=== PATIENT | male | born 1975 | race Caucasian/White ===

== ENCOUNTER 2025-04-16 12:21 | Emergency (ER) | payer BC, SELFPAY ==
--- OUTSIDE RECORDS SUMMARY | 2025-04-16 12:23 | XMS_ITS | Clinical Summary ---
Author Organization [employer] [facility] [employer] Address [address] [place] [id number] Care Team Providers Care Wire Frame Maker Name Role Phone Cr Quintero MD Primary Care Provider [phone] Allergies Active Allergy Reactions Criticality Noted Date Comments Penicillins 10/24/2009 Medications No known medications Active Problems Problem Noted Date Diagnosed Date Melanocytic nevus of trunk 12/21/2016 Overview (12/21/2016): 3 mm mole left mid back dark brown and flat. Immunizations Immunization Administration Dates Next Due AMB Influenza, IIV3 (Age >=3 years)(Flu Clinic O nly) 07/19/2009 AMB Influenza, IIV4 PF (=>6 mos Flulaval,Fluzone Fluarix)(Flu Clinic Only) 07/12/2020 Influenza A (H1N1), Inactivated (Age >=3 Years) 09/23/2009 Tdap 04/18/2019 Family History Medical History Relation Name Comments Diabetes Maternal Grandmother Cancer-colon No Family History Cancer-prostate No Family History Heart attack No Family History Relation Name Status Comments Maternal Grandmother Social History Tobacco Use Types Packs/Day Years Used Date Smoking Tobacco: Never Smokeless Tobacco: Never Tobacco Cessation:Counseling Given: Yes Alcohol Use Standard Drinks/Week Comments Yes 0 (1 standard drink = 0.6 oz pur e alcohol) Ocas. PHQ-2 Answer Date Recorded PHQ-2 Score 0 04/18/2019 Social Connections Answer Date Recorded Frequency of Communication with Friends and Fami ly Not on file 10/04/2021 Financial Resource Strain Answer Date R ecorded Difficulty of Paying Living Expenses Not on file 10/04/2021 Difficulty of Paying Living Expenses Not on file 10/04/2021 Sex and Gender Information Value Date Recorded Sex Assigned at Not on file Legal Sex Male 5:24 AM DISPLAY FABRICATION SUPERVISOR Gender Identity Not on file Sexual Orientation Not on file Obstetrics History Last Filed Vital Signs Vital Sign Reading Time Taken Comments Blood Pressure 127/86 10/23/2019 10:25 AM DISPLAY FABRICATION SUPERVISOR Pulse 47 10/23/2019 10:25 AM DISPLAY FABRICATION SUPERVISOR Temperature 36.7 C (98 F) 10/23/2019 10:25 AM DISPLAY FABRICATION SUPERVISOR Respiratory Rate - - Oxygen Saturation 98% 10/23/2019 10:25 AM DISPLAY FABRICATION SUPERVISOR Inhaled Oxygen Concentration - - Weight 82.3 kg (181 lb 8 oz) 10/23/2019 10:25 AM DISPLAY FABRICATION SUPERVISOR Height 184.2 cm (6' 0.5) 10/23/2019 10:25 AM CS T Body Mass Index 24.28 10/23/2019 10:25 AM DISPLAY FABRICATION SUPERVISOR Plan of Treatment Upcoming Encounters Date Type Department Care Team (Late st Contact Info) Description 04/17/2025 12:45 PM CDT Office Visit [facility] [address] [place] [address] Charlotte Taylor PA [address] [place] [address] Health Maintenance Due Date Last Done Comments HIV for age 15-65 12/10/1990 Hepatitis C screening for age 18-79 12/10/1993 Hepatitis B series for 19+ (1 of 3 - 19+ 3-dose series) 12/10/1994 Depression screening for age 12+ 04/18/2020 04/18/2019, 12/21/2016 BMI (ht and wt on same day) for age 18+ 10/23/2020 10/23/2019, 04/18/2019, 02/08/2017, Additional history exists Colonoscopy through age 75 12/10/2020 Lipids for age 45-75 04/18/2024 04/18/2019, 12/22/19 17 COVID-19 vaccine series (2023- season) 2024 Influenza Vaccine (#1) 2025 07/12/2020, 2008 Tetanus booster 04/18/2029 04/18/2019 Pneumococcal series for age 6-49 Aged Out No longer eligible based on patient's age to complete this topic Procedures Procedure Name Priority Date/Time Associated Diagnosis Comments LIPID PANEL W REFLEX MEASURED LDL Routine 04/18/2019 9:16 AM CDT Lipid screening from Last 3 Months or Most Recently Relevant to Health Maintenance Results * (ABNORMAL) LIPID PANEL W REFLEX MEASURED LDL (04/18/2019 9:16 AM CDT) CHOLESTEROL,TOTAL 140 100 - 199 mg/dL 04/18/2019 2:02 PM CDT [facility] TRIGLYCERIDES 107 <150 mg/dL 04/18/2019 2:02 PM CDT [facility] HDL CHOLESTEROL 33(L) >40 mg/dL 9 2:02 PM CDT [facility] NON-HDL CHOLESTEROL 107 <145 mg/dl 04/18/2019 2:02 PM CDT [facility] CHOL/HDL RATIO 4.24 <4.50 04/18/2019 2:02 PM CDT [facility] LDL CHOLESTEROL 86 <=130 mg/dL 04/18/2019 2:02 PM CDT [facility] PROVIDER ORDERED STATUS RANDOM 04/18/2019 2:02 PM CDT [facility] Blood BLOOD SPECIMEN / Unknown Venipuncture / Unknown 04/18/2019 9:16 AM CDT 04/18/2019 9:16 AM CDT us Jamarcus Eisenberg MD CHEMISTRY Final Result [facility] [address] [place] [address], [place] from Last 3 Months or Most Recently Relevant to Health Maintenance Care Teams Wire Frame Maker Relationship Specialty Start Date End Date Cr Quintero MD [address] [place] [address] PCP - General 10/9/07
[2025-04-16 12:28] VITALS: BP 166/95; PULSE 52; RESP 20; TEMP 36.9; O2SAT 98; BMI 25.6
--- NOTE | 2025-04-16 12:33 | ED.LOWEXIN ---
HPI - Extremity Injury (Lower) General Time Seen by Provider: 12:33 Date Seen: 04/16/25 Chief Complaint: Extremity Pain/Injury, Lower Stated Complaint: R knee injury Time Seen by Provider: 04/16/25 12:31 Source: patient and RN notes reviewed Mode of arrival: ambulatory Limitations: no limitations Related Data Home Medications ?Medication ?Instructions ?Recorded ?Confirmed No Known Home Medications 04/16/25 04/16/25 Allergies Allergy/AdvReac Type Severity Reaction Status Date / Time Penicillins Allergy Intermediate Unknown Verified 04/16/25 12:31 Exam Const: Vital Signs, click to edit/add: Vital Signs - 24 hr 04/16/25 12:28 Temperature 98.5 F Pulse Rate [Pulse Oximeter] 52 L Respiratory Rate 20 Blood Pressure [Ri ght Upper Arm] 166/95 H Pulse Oximetry 98 Oxygen Delivery Me thod Room Air Course Vital Signs Vital signs: Initial Vital Signs Temperature 98.5 F 04/16/25 12:28 Temperature Source Temporal Artery Scan 04/16/25 12:28 Pulse Rate 52 L 04/16/25 12:28 Respiratory Rate 20 04/16/25 12:28 Blood Pressure 166/95 H 04/16/25 12:28 Blood Pressure Mean 118 H 04/16/25 12:28 Pulse Oximetry 98 04/16/25 12:28 Oxygen Delivery Method Room Air 04/16/25 12:28 Vital Signs Temperature 98.5 F 04/16/25 12:28 Pulse Rate 52 L 04/16/25 12:28 Respiratory Rate 20 04/16/25 12:28 Blood Pressure 166/95 H 04/16/25 12:28 Pulse Oximetry 98 04/16/25 12:28 Oxygen Delivery Method Room Air 04/16/25 12:28 Temperature 98.5 F 04/16/25 12:28 Pulse Rate 52 L 04/16/25 12:28 Respiratory Rate 20 04/16/25 12:28 Blood Pressure 166/95 H 04/16/25 12:28 Pulse Oximetry 98 04/16/25 12:28 Oxygen Delivery Method Room Air 04/16/25 12:28 Discharge Plan Discharge Prescriptions: No Action No Known Home Medications Follow Up/Referrals: Cr Quintero MD [Primary Care Provider, Family Practice]
--- NOTE | 2025-04-16 12:49 | ED_ITS ---
HPI - Extremity Injury (Lower) General Date Seen: 04/16/25 <Abdulkadir Hoffman - Last Filed: 04/16/25 12:54> Chief Complaint: Extremity Pain/Injury, Lower <Abdulkadir Hoffman - Last Filed: 04/16/25 12:54> Stated Complaint: R knee injury <Abdulkadir Hoffman DO - Last Filed: 04/16/25 12:54> Time Seen by Provider: 04/16/25 12:31 <Abdulkadir Hoffman DO - Last Filed: 04/16/25 12:54> Source: patient <Abdulkadir Hoffman - Last Filed: 04/16/25 12:54> Mode of arrival: ambulatory <Abdulkadir Hoffman - Last Filed: 04/16/25 12:54> Limitations: no limitations <Abdulkadir Hoffman DO - Last Filed: 04/16/25 12:54> History of Present Illness HPI Narrative: Patient is a 49-year-old male presenting for right knee pain. He was playing baseball yesterday when he turned to run up the 1st baseline and felt a pop in his right knee. Since then he is having pain in this knee expect she with turning. Is able to ambulate but does get more pain when walking up steps. Has been taking ibuprofen for pain. He called the [facility] office and was told to come to the emergency department for imaging. Denies any other injuries to this knee in states he just started twisting his knee. Denies any numbness to that leg. No other concerns noted <Abdulkadir Hoffman - Last Filed: 04/16/25 12:54> Related Data Home Medications: Home Medications ?Medication ?Instructions ?Recorded ?Confirmed No Known Home Medications 04/16/2504/03 <Abdulkadir Hoffman DO - Last Filed: 04/16/25 12:54> Allergies/Adverse Reactions: Allergies Allergy/AdvReac Type Severity Reaction Status Date / Time Penicillins Allergy Intermediate Unknown Verified 04/16/25 13:30 <Abdulkadir Hoffman DO - Last Filed: 04/16/25 12:54> Review of Systems Narrative: Pertinent systems reviewed and were negative unless stated in HPI <Abdulkadir Hoffman - Last Filed: 04/16/25 12:54> [facility] Medical History: Medical History (Updated 04/16/25 @ 13:03 by Ines Medellin ~ MEDICAL CERTIFICATION SPECIALIST, MEDICAL CERTIFICATION SPECIALIST) Dyslipidemia ?E78.5 - Hyperlipidemia, unspecified (ICD-10) Melanocytic nevus of trunk ?D22.5 - Melanocytic nevi of trunk (ICD-10) <Abdulkadir Hoffman DO - Last Filed: 04/16/25 12:54> Exam Narrative: Exam Narrative: Const: Well-nourished, Well-developed, in mild distress Eyes: PERRL, no conjunctival injection, and symmetrical lids HENT: Atraumatic external nose and ears. Moist mucous membranes. CVS: Dorsalis pedis pulses 2+ and equal in all extremities MSK:Extremities w/o deformity, no locking noted of the right knee. Normal anterior and posterior draw test. Minimal pain with Margarita test. Pain noted with Thessaly. Skin: Warm, Dry. No rashes or lesions. Neuro: Normal Muscle tone, No focal neurological deficits. Psych: Awake, Alert, & Oriented x3. Appropriate mood and affect. <Abdulkadir Hoffman DO - Last Filed: 04/16/25 12:54> Const: Vital Signs, click to edit/add: Vital Signs - 24 hr 04/16/25 12:28 Temperature 98.5 F Pulse Rate [Pulse Oximeter] 52 L Respiratory Rate 20 Blood Pressure [Ri ght Upper Arm] 166/95 H Pulse Oximetry 98 Oxygen Delivery Me thod Room Air <Abdulkadir Hoffman DO - Last Filed: 04/16/25 12:54> Vital Signs, click to edit/add: Vital Signs - 24 hr 04/16/25 12:28 Temperature 98.5 F Pulse Rate [Pulse Oximeter] 52 L Respiratory Rate 20 Blood Pressure [Ri ght Upper Arm] 166/95 H Pulse Oximetry 98 Oxygen Delivery Me thod Room Air <Cecily Rachel MD - Last Filed: 04/16/25 15:57> Course Vital Signs Vital signs: Initial Vital Signs Temperature 98.5 F 04/16/25 12:28 Temperature Source Temporal Artery Scan 04/16/25 12:28 Pulse Rate 52 L 04/16/25 12:28 Respiratory Rate 20 04/16/25 12:28 Blood Pressure 166/95 H 04/16/25 12:28 Blood Pressure Mean 118 H 04/16/25 12:28 Pulse Oximetry 98 04/16/25 12:28 Oxygen Delivery Method Room Air 04/16/25 12:28 Vital Signs Temperature 98.5 F 04/16/25 12:28 Pulse Rate 52 L 04/16/25 12:28 Respiratory Rate 20 04/16/25 12:28 Blood Pressure 166/95 H 04/16/25 12:28 Pulse Oximetry 98 04/16/25 12:28 Oxygen Delivery Method Room Air 04/16/25 12:28 Temperature 98.5 F 04/16/25 12:28 Pulse Rate 52 L 04/16/25 12:28 Respiratory Rate 20 04/16/25 12:28 Blood Pressure 166/95 H 04/16/25 12:28 Pulse Oximetry 98 04/16/25 12:28 Oxygen Delivery Method Room Air 04/16/25 12:28 <Abdulkadir Hoffman DO - Last Filed: 04/16/25 12:54> Initial Vital Signs Temperature 98.5 F 04/16/25 12:28 Temperature Source Temporal Artery Scan 04/16/25 12:28 Pulse Rate 52 L 04/16/25 12:28 Respiratory Rate 04/16/25 12:28 Blood Pressure 166/95 H 04/16/25 12:28 Blood Pressure Mean 118 H 04/16/25 12:28 Pulse Oximetry 98 04/16/25 12:28 Oxygen Delivery Method Room Air 04/16/25 12:28 Vital Signs Temperature 98.5 F 04/16/25 12:28 Pulse Rate 52 L 04/16/25 12:28 Respiratory Rate 20 04/16/25 12:28 Blood Pressure 166/95 H 04/16/25 12:28 Pulse Oximetry 98 04/16/25 12:28 Oxygen Delivery Method Room Air 04/16/25 12:28 Temperature 98.5 F 04/16/25 12:28 Pulse Rate 52 L 04/16/25 12:28 Respiratory Rate 20 04/16/25 12:28 Blood Pressure 166/95 H 04/16/25 12:28 Pulse Oximetry 98 04/16/25 12:28 Oxygen Delivery Method Room Air 04/16/25 12:28 <Cecily Rachel MD - Last Filed: 04/16/25 15:57> MDM - Extremity Injury (Lower) MDM Narrative Medical decision making narrative: Patient presents to the emergency department for right knee pain. Pain could be related to a meniscus tear. No signs of ACL or PCL injuries. He was told to come to the emergency department by the orthopedic clinic for imaging. The patient's even showed me her recent calls of her calling the orthopedic clinic. I am not sure why he would require imaging in the emergency department. We would not do any emergent MRI at this time for this pain and x-rays seem very unlikely to be beneficial as there was no trauma and pain just occurred from him turning his knee. I did offer x-rays but family declined them if I do not believe they will be helpful. We called the orthopedic clinic to find out why he was sent here and they are not sure. Reschedule the patient for him today. He will be discharged. <Abdulkadir Hoffman DO - Last Filed: 04/16/25 12:54> Patient presents to the emergency department for right knee pain. Pain could be related to a meniscus tear. No signs of ACL or PCL injuries. He was told to come to the emergency department by the orthopedic clinic for imaging. The patient's even showed me her recent calls of her calling the orthopedic clinic. I am not sure why he would require imaging in the emergency department. We would not do any emergent MRI at this time for this pain and x-rays seem very unlikely to be beneficial as there was no trauma and pain just occurred from him turning his knee. I did offer x-rays but family declined them if I do not believe they will be helpful. We called the orthopedic clinic to find out why he was sent here and they are not sure. Reschedule the patient for him today. He will be discharged. Request no charge for today's visit. <Cecily Rachel MD - Last Filed: 04/16/25 15:57> Discharge Plan Discharge Clinical Impression: Acute knee pain Qualifiers: Laterality: right Qualified Code(s): M25.561 - Pain in right knee <Abdulkadir Hoffman DO - Last Filed: 04/16/25 12:54> Patient Disposition: Home, Self-Care <Abdulkadir Hoffman DO - Last Filed: 04/16/25 12:54> Condition: Stable <Abdulkadir Hoffman DO - Last Filed: 04/16/25 12:54> Instructions: Knee Pain (ED) <Abdulkadir Hoffman DO - Last Filed: 04/16/25 12:54> Additional Instructions: You have an appointment with Orthopedics at 13:30 today. Address is [address] [place] [address]. <Abdulkadir Hoffman DO - Last Filed: 04/16/25 12:54> Prescriptions: No Action No Known Home Medications <Abdulkadir Hoffman DO - Last Filed: 04/16/25 12:54> Follow Up/Referrals: Cr Quintero MD [Primary Care Provider, Family Practice] <Abdulkadir Hoffman DO - Last Filed: 04/16/25 12:54> Stand Alone Forms: My[facility] Info Instructions <DO Unique Mcqueen Last Filed: 04/16/25 12:54>
== END 2025-04-16 13:01 | disposition home or self-care (01) ==
LOC: ED 13:00
PROVIDERS: Emergency Provider Student in an Organized Health Care Education/Training Program; PCP Family Medicine
DX: M25.561 Pain in right knee (principal)
CPT/HCPCS: 99281

== ENCOUNTER 2025-05-11 07:06 | Outpatient (CLI) | payer BC, SELFPAY ==
--- NOTE | 2025-05-11 07:15 | MR_ITS ---
[address] [address] Phone:?[phone] Fax:?[phone] Referring Physician Information: Angie Benitez [address] [facility] [address] Phone:?[phone] Fax:?[phone] Patient:Juli Marquez D.O.B:?1975 Sex:?Male Phone:?[phone] [facility] MRN:?[id number] Exam Date:?05/11/2025 EXAM: MRI of the RIGHT KNEE, without contrast CLINICAL: Male, 49 years old, with medial right knee pain. INDICATION: Evaluate for medial meniscus tear and MCL injury versus other knee internal derangement etiology. PRIOR SURGERY: None reported. PLAIN FILMS: 04/16/2025 radiographic series of the right knee. COMPARISONS: No prior MRIs available. TECHNICAL: Using a 1.5 Carley MR scanner and a localizing surface coil: 3.0 mm?sagittals: PD, PDFS 3.0 mm?coronals: PD, STIR 3.0 mm?axials: PD, T2FS SEDATION: None. CONTRAST: None. IMPRESSION: 1. Focal vertical oblique radial tear of the far posterior medial meniscus without complete disruption although with mild 2 mm of peripheral extrusion. 2. Very localized chondral thinning of the medial rim of the medial tibial plateau with slight subjacent marrow edema. 3. Moderate knee effusion. 4. No lateral meniscus tear. 5. No cruciate or collateral ligament injuries. FINDINGS: Knee joint: Effusion: Moderate knee effusion. Popliteal cyst: Minimal popliteal cyst. Loose bodies: None. Subcutaneous and extra-articular soft tissues: Unremarkable. Ligaments: ACL: Intact and normal. PCL: Intact and normal. MCL: Intact and normal. FCL: Intact and normal. Posterolateral corner: Intact popliteus, biceps femoris, iliotibial band, popliteofibular ligament and lateral gastrocnemius. Posteromedial corner: Intact pes anserinus and posterior oblique ligament. Extensor mechanism: Patellar tendon: Intact and normal. Quadriceps tendon: Intact and normal. Retinacula: Intact and normal. Fat pads: Unremarkable. Medial compartment: Medial meniscus: An incomplete vertical oblique radial tear of the far posterior medial meniscus without convincing complete posterior root tear (sagittal images 23-18; coronal images 22-20). Mild 2 mm of peripheral meniscal extrusion. Medial femoral condyle: No demonstrable chondromalacia. Medial tibial plateau: Very localized grade II-III chondromalacia/thinning of the medial rim of the medial tibial plateau is accompanied by slight subjacent reactive marrow edema (coronal STIR series 8, images 17-19). Lateral compartment: Lateral meniscus: Intact and normal. Lateral femoral condyle: No demonstrable chondromalacia. Lateral tibial plateau: No demonstrable chondromalacia. Patellofemoral joint: Patella: No demonstrable chondromalacia. Trochlea: No demonstrable chondromalacia. Proximal tibiofibular joint: Unremarkable. Bones: No other marrow edema or fractures. 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 Anterior tibial artery: No aberrant variant. Tibial nerve: Normal. Popliteal nerve: Normal. Common peroneal nerve: Normal. [facility] Electronically signed on 05/11/2025 6:59:00 PM by Yuri Cruz M.D.
== END 2025-05-11 07:07 | disposition home or self-care (01) ==
LOC: MRI 07:07
PROVIDERS: PCP Family Medicine; Visit Provider Physician Assistant
DX: M25.561 Pain in right knee (principal); S83.241A Other tear of medial meniscus, current injury, right knee, initial encounter; M25.461 Effusion, right knee; S89.91XA Unspecified injury of right lower leg, initial encounter
CPT/HCPCS: 73721

== ENCOUNTER 2025-05-31 09:23 | Day surgery (SDC) | payer BC, SELFPAY ==
[2025-05-31] VITALS (14 sets, daily range): BP systolic 95–124; BP diastolic 59–83; PULSE 53–80; RESP 16–18; TEMP 36.6–36.9; O2SAT 94–99; BMI 26.2
[2025-05-31] MEDS: LACTATED RINGERS 1000 ML 1,000 ML 100 ML IV (10:00)
[2025-05-31] MEDS: BUPIVACAINE 0.25% 30 ML INJECTION (12:05)
--- NOTE | 2025-05-31 12:13 | PM.ORPRC ---
Procedure Note Date of procedure: 05/31/25 Procedure: PREOPERATIVE DIAGNOSIS: Right knee medial meniscus tear POSTOPERATIVE DIAGNOSIS: Right knee medial meniscus tear NAME OF OPERATION: Right knee arthroscopic partial medial meniscectomy SURGEON: Familia Gillespie MD UNDERWRITING ANALYST: EDILMA Pyle ANESTHESIA: Spinal ESTIMATED BLOOD LOSS: 0 mL COMPLICATIONS: None SPECIMENS: None DRAINS: None PREOPERATIVE ANTIBIOTICS: Ancef 2 gram INDICATIONS: The patient is a 49-year-old with a history of right knee pain. MRI scan is consistent with a medial meniscus tear. Despite appropriate nonoperative management, including activity modification, antiinflammatories, [id number] pain medication, bracing, physical therapy, and injections they continue to have pain and disability. Operative intervention was offered. The risks, benefits and expected outcomes were discussed in detail. These included but were not limited to: Infection, bleeding, injury to blood vessel or nerve, venous thromboembolism. All questions were answered to their satisfaction. PROCEDURE: Spinal anesthesia was administered. The patient was placed supine on the operating room table. The right lower extremity was prepped and draped in the usual sterile fashion. The limb was exsanguinated with the Anthony bandage. The pneumatic tourniquet was inflated to 225 mmHg. A standard anterolateral portal was established. The arthroscope was introduced. The working portal was established anteromedially. Diagnostic arthroscopy was performed with findings as follows: The suprapatellar pouch is normal. Articular surface on the patella is normal. Articular surface on the trochlea is normal. The medial gutter is normal. The medial compartment shows a focal area of grade 2/3 size changer the lateral aspect of the medial femoral condyle. The medial meniscus has a parrot-beak tear of the posterior horn, medial to the posterior tibial attachment. There is a large unstable flap and a small radial component, the does not go to the capsule. The root is intact. The notch shows the ACL to be intact. The lateral compartment shows normal articular cartilage on the lateral femoral condyle and lateral tibial plateau. The lateral meniscus is normal. The lateral gutter is normal. The posterior horn of the medial meniscus was debrided to a stable base using a combination of renny through both portals. Unstable chondral flaps on the medial femoral condyle were debrided with the shaver. Arthroscopic instruments were removed, the portal sites were Steri-Stripped closed, the knee was infiltrated with 30 mL of 0.25% Marcaine without epinephrine. A dry dressing was applied, the tourniquet was released. Sponge and needle counts were correct x 2. The patient tolerated the procedure well. There were no apparent complications. They were carefully transferred to the hospital bed and taken to the postanesthesia care unit in satisfactory condition. PLAN: The patient will be discharged to home. They may weightbear as tolerates. Range of motion will be unrestricted. They will follow up in the office next week for a wound check.
--- NOTE | 2025-05-31 12:26 | P.ANES_ITS ---
Anesthesia Charges Start Date/Time Anesthesia Start Date: 05/31/25 Anesthesia Start Time: 11:19 Stop Date/Time Anesthesia Stop Date: 05/31/25 Anesthesia Stop Time: 12:20 Coding CPT Codes CPT Codes: ANESTH KNEE JOINT SURGERY - 43992 ([id number]) P1 - NORMAL HEALTHY PATIENT, QK - SCANNING COORDINATOR 2-4 CNCRNT ANES PROC
--- NOTE | 2025-05-31 12:26 | W.ANESCHARGE ---
Anesthesia Charges Start Date/Time Anesthesia Start Date: 05/31/25 Anesthesia Start Time: 11:19 Stop Date/Time Anesthesia Stop Date: 05/31/25 Anesthesia Stop Time: 12:20 Coding CPT Codes CPT Codes: ANESTH KNEE JOINT SURGERY - 17802 ([id number]) P1 - NORMAL HEALTHY PATIENT, QK - ROOF BOLTER 2-4 CNCRNT ANES PROC
--- NOTE | 2025-05-31 12:27 | P.ANES_ITS ---
Anesthesia Charges Start Date/Time Anesthesia Start Date: 05/31/25 Anesthesia Start Time: 11:19 Stop Date/Time Anesthesia Stop Date: 05/31/25 Anesthesia Stop Time: 12:20 Coding CPT Codes CPT Codes: ANESTH KNEE JOINT SURGERY - 98629 ([id number]) P1 - NORMAL HEALTHY PATIENT, QK - MATERIAL ENGINEER 2-4 CNCRNT ANES PROC, QX - DIRECTOR OF MEDICAL REVIEW SVLeah W/ MED DIRECTION
--- NOTE | 2025-05-31 12:27 | W.ANESCHARGE ---
Anesthesia Charges Start Date/Time Anesthesia Start Date: 05/31/25 Anesthesia Start Time: 11:19 Stop Date/Time Anesthesia Stop Date: 05/31/25 Anesthesia Stop Time: 12:20 Coding CPT Codes CPT Codes: ANESTH KNEE JOINT SURGERY - 38349 ([id number]) P1 - NORMAL HEALTHY PATIENT, QK - PORTFOLIO ARCHITECT 2-4 CNCRNT ANES PROC, QX - NEWS OPERATIONS MANAGER SVLeah W/ MED DIRECTION
--- NOTE | 2025-05-31 12:47 | SUR.PHASEI ---
Patient meets discharge criteria from PACU
--- NOTE | 2025-05-31 14:53 | SUR.PHASEII ---
Patient unable to void after spinal. Spoke with patient about how this can happen and instructed patient that if he is still unable to void after 6 hours or if he is having a lot of pressure in his bladder and unable to void, that he will need to be seen in the ED to have his bladder drained. Patient and understood this and we comfortable discharging to home.
== END 2025-05-31 14:57 | disposition home or self-care (01) ==
LOC: OR 09:24
PROVIDERS: PCP Family Medicine; Visit Provider Orthopaedic Surgery
PROC: (CPT 29882; principal; 2025-05-31 11:00)
DX: S83.241A Other tear of medial meniscus, current injury, right knee, initial encounter (principal)
CPT/HCPCS: 29881; 01400; J0665; J0690; J1100; J2250; J2405; J2704; J3010; J7120